=== PATIENT | female | born 1975 | race Caucasian/White ===

== ENCOUNTER 2020-07-25 16:25 | Outpatient (CLI) | payer BC | END 2020-07-25 16:26 | disposition home or self-care (01) | LOC: COV 16:25 | PROVIDERS: ATTEND Family Medicine | DX: Z20.828 Contact with and (suspected) exposure to other viral communicable diseases (principal) ==

== ENCOUNTER 2021-02-16 08:54 | Outpatient (CLI) | payer BC ==
--- NOTE | 2021-02-16 09:11 | XRAY Report ---
PROCEDURE: Nasal Bones INDICATIONS: CONTUSION OF OTHER PART OF HEAD, INITIAL ENCOUNTER TECHNIQUE: 3 views of the nasal bones acquired. COMPARISON: None FINDINGS: Bones: No fractures or dislocations. Slight anterior nasal septal deviation to the right is seen. No rmal nasociliary nerve grooves are noted. Soft tissues: No suspicious soft tissue calcifications. IMPRESSION: No gross acute nasal bone fracture. Slight anterior nasal septal deviation to the right. Reviewed by: Geoff Carrasco MD on 02/16/2021 9:10 AM PDT Approved by: Geoff Carrasco MD on 02/16/2021 9:10 AM PDT Station ID: [id number]
== END 2021-02-16 08:55 | disposition home or self-care (01) ==
LOC: DI.S 08:54
PROVIDERS: ATTEND Physician Assistant Medical
DX: S00.83XA Contusion of other part of head, initial encounter (principal); J34.2 Deviated nasal septum